=== PATIENT | male | born 1990 | race Two or more races ===

== ENCOUNTER 2024-11-27 15:23 | Emergency (ER) | payer OTHER ==
[~2024-11-27] VITALS: Ht 177.8 cm; Wt 74.4 kg
--- NOTE | 2024-11-27 16:04 | ED.PDOC ---
History of Present Illness HPI Comments A 34 YEAR OLD MALE PRESENTS TO THE ED WITH COMPLAINT OF COUGH AND SHORTNESS OF BREATH. PATIENT STATES HE HAS BEEN EXPERIENCING A COUGH AND CONGESTION WITH DIFFICULTY BREATHING/SHORTNESS OF BREATH OFF AND ON FOR THE PAST 2 WEEKS WITH WORSENING SYMPTOMS OVER THE PAST 3 DAYS. PATIENT REPORTS HE WENT TO [facility] TODAY WHERE LABS WERE DONE AND WAS INSTRUCTED TO GO TO THE ED FOR FURTHER EVALUATION AND TO RULE OUT A PE. PATIENT DENIES FEVER, CHILLS, CHEST PAIN, ABDOMINAL PAIN, NAUSEA, VOMITING, HEADACHE, OR OTHER COMPLAINTS. NO OTHER SYMPTOMS OR MODIFYING FACTORS AT THIS TIME. PATIENT IS ALERT, ORIENTED X 4, AND HAS STEADY GAIT. Chief Complaint: Cough Time Seen by MD: 15:40 Reviewed Notes: Nurses Notes, Medications, Allergies Allergies: Coded Allergies: NO KNOWN ALLERGIES (Unverified , 11/27/24) Home Meds Active Scripts Promethazine-Dm (Promethazine Dm 6.25-15 mg/5Ml) 1 Maribel Maribel, 5 ML PO TID, #180 ML Prov:HELENA PETERSON 11/27/24 Azithromycin (Azithromycin) 500 Mg Tab, 1 TAB PO DAILY, #5 TAB Prov:HELENA PETERSON 11/27/24 Levofloxacin Hemihydrate (LEVAQUIN 500 MG) 500 Mg Tab, 1 TAB PO DAILY, #10 TAB Prov:HELENA PETERSON 11/27/24 Information Source: Patient Mode of Arrival: Ambulatory Severity: Moderate Timing: Weeks Duration: Since onset, Days Prehospital treatment: None Medication Refill: For: Other (COUGH, CONGESTION AND SOB. ) Past Medical History PAST MEDICAL HISTORY: Denies Surgical History: Denies all surgeries Family History Family History: Reviewed,noncontributory to illness Social History Smoker: Non-Smoker Alcohol: Occasionally Drugs: Marijuana Lives In: Home Constitutional: denies: chills, diaphoresis, fatigue, fever, malaise, sweats, weakness, others EENTM: reports: nose congestion; denies: blurred vision, double vision, ear bleeding, ear discharge, ear drainage, ear pain, ear ringing, eye pain, eye redness, hearing loss, mouth pain, mouth swelling, nasal discharge, nose bleeding, nose pain, photophobia, tearing, throat pain, throat swelling, voice changes, others Respiratory: reports: cough, shortness of breath; denies: hemoptysis, orthopnea, SOB at rest, SOB with excertion, stridor, wheezing, others Gastrointestinal: denies: abdomen distended, abdominal pain, blood streaked bowels, constipated, diarrhea, dysphagia, difficulty swallowing, hematemesis, melena, nausea, poor appetite, poor fluid intake, rectal bleeding, rectal pain, vomiting, others Genitourinary: denies: burning, dysuria, flank pain, frequency, hematuria, incontinence, penile discharge, penile sore, pain, testicle pain, testicle swelling, urgency, others Neurological: denies: dizziness, fainting, headache, left sided numbness, left sided weakness, numbness, paresthesia, pre-existing deficit, right sided numbness, right sided weakness, seizure, speech problems, tingling, tremors, weakness, others Musculoskeletal: denies: back pain, gout, joint pain, joint swelling, muscle pain, muscle stiffness, neck pain, others Integumetry: denies: bruises, change in color, change in hair/nails, dryness, laceration, lesions, lumps, rash, wounds, others Allergic/Immunocompromised: denies: Difficulty Healing, Frequent Infections, Hives, Itching, others Hematologic/Lymphatic: denies: anemia, blood clots, easy bleeding, easy bruising, swollen glands, others Endocrine: denies: excessive hunger, excessive sweating, excessive thirst, excessive urination, flushing, intolerance to cold, intolerance to heat, unexplained weight gain, unexplained weight loss, others Psychiatric: denies: anxiety, bipolar disorder, depression, hopeless, panic disorder, schizophrenia, sleepless, suicidal, others All Other Systems: Reviewed and Negative Physical Exam General Appearance: No Apparent Distress, Normal HEENT: Normal ENT Inspection, PERRL/EOMI, Pharynx Normal, TMs Normal Neck: Full Range of Motion, Non-Tender, Normal, Normal Inspection Respiratory: Chest Non-Tender, Decreased Breath Sounds, Expiration, No Accessory Muscle Use, No Respiratory Distress, Rhonchi Cardiovascular: No Edema, No JVD, No Murmur, No Gallop, Normal Peripheral Pulses, Regular Rate/Rhythm Breast Exam: Deferred Gastrointestinal: No Organomegaly, Non Tender, No Pulsatile Mass, Normal Bowel Sounds, Soft Genitalia: Deferred Pelvic: Deferred Rectal: Deferred Extremities: No calf tenderness, Normal capillary refill, Normal inspection, Normal range of motion, Non-tender, No pedal edema Musculoskeletal : Apperance: Normal Neurologic: Alert, circuit court clerk II-XII nml as Tested, No Motor Deficits, Normal Affect, Normal Mood, No Sensory Deficits Cerebellar Function: Normal Reflexes: Normal Skin: Dry, Normal Color, Warm Peripheral Pulses: 2+ carotid (R), 2+ carotid (L) Lymphatic: No Adenopathy Was a procedure done? Was a procedure done?: No Differential Dx Considerations may include: URI, BRONCHITIS, PNEUMONIA, TONSILLITIS, PHARYNGITIS, PE, DYSPNEA X-Ray, Labs, Meds, VS Vital Signs Date Time Temp Pulse Resp B/P (MAP) Pulse Ox O2 Delivery O2 Flow Rate FiO2 11/27/24 18:31 98.0 99 18 130/84 (99) 95 98.0 11/27/24 18:31 99 18 95 Room Air 11/27/24 15:43 20 95 Room Air 0 11/27/24 15:43 98.4 109 20 120/82 (95) 95 98.4 Lab Test 11/27/24 15:51 Range/Units White Blood Count 11.9 H 4.4-10.8 10^3/uL Red Blood Count 5.30 4.5-5.90 10^6/uL Hemoglobin 16.1 13.5-17.5 g/dL Hematocrit 45.6 41.0-53.0 % Mean Corpuscular Volume 86.1 80.0-100.0 fL Mean Corpuscular Hemoglobin 30.4 28.0-32.0 pg Mean Corpuscular Hemoglobin Concent 35.3 32.0-36.0 g/dL Red Cell Distribution Width 13.5 11.8-14.3 % Platelet Count 382 140-450 10^3/uL Mean Platelet Volume 8.1 6.9-10.8 fL Neutrophils (%) (Auto) 80.7 H 37.0-80.0 % Lymphocytes (%) (Auto) 8.9 L 10.0-50.0 % Monocytes (%) (Auto) 7.7 0.0-12.0 % Eosinophils (%) (Auto) 1.5 0.0-7.0 % Basophils (%) (Auto) 1.2 0.0-2.0 % Neutrophils # (Auto) 9.6 H 1.6-8.6 10 ^3/uL Lymphocytes # (Auto) 1.1 0.4-5.4 10 ^3/uL Monocytes # (Auto) 0.9 0-1.3 10 ^3/uL Eosinophils # (Auto) 0.2 0-0.8 10 ^3/uL Basophils # (Auto) 0.1 0-0.2 10 ^3/uL Nucleated Red Blood Cells 0.2 % D-Dimer, Quantitative 0.66 H 0.0-0.49 mg/L FEU Sodium Level 138 136-145 mmol/L Potassium Level 4.2 3.5-5.1 mmol/L Chloride Level 98 98-107 mmol/L Carbon Dioxide Level 30 20-31 mmol/L Anion Gap 10 5-15 Blood Urea Nitrogen 11 9-23 mg/dL Creatinine 1.17 0.700-1.30 mg/dL Glomerular Filtration Rate Calc 83 >90 mL/min BUN/Creatinine Ratio 9.4 L 10.0-20.0 Serum Glucose 106 74-106 mg/dL Calcium Level 9.9 8.7-10.4 mg/dL Current Medications Medications (Trade) Dose Ordered Sig/Jenny Route Start Time Stop Time Status Last Admin Ceftriaxone Sodium 50 ml @ 100 mls/hr ONCE ONCE IV 11/27/24 17:15 11/27/24 17:44 DC 11/27/24 17:13 Sodium Chloride 1,000 ml @ 1,000 mls/hr Q1H ONCE IV 11/27/24 17:15 11/27/24 18:14 DC 11/27/24 17:16 Azithromycin 250 ml @ 125 mls/hr ONCE ONCE IV 11/27/24 17:15 11/27/24 18:42 DC 11/27/24 17:13 PATIENT: MARGARITA LOGANT: [id number]: [id number] : 1990 LOC: ER ROOM / BED: / AGE / SEX: 34 / M ADM STATUS: REG ER SERVICE [id number] ORDERING PHYSICIAN: HELENA PETERSON PROCEDURE(s): CTACH - CT ANGIO CHEST CONTRAST REASON: SOB, COUGH WITH MILD ELEVATED D-DIMER ORDER NUMBER(s): [id number], ACCESSION NUMBER(s): [id number] INDICATION: SOB, COUGH WITH MILD ELEVATED D-DIMER TECHNIQUE: Multidetector CTA of the chest was performed of the chest with 100 cc of intravenous contrast. PULMONARY ANGIOGRAPHY PROTOCOL was utilized using a bolus-tracking technique centered on the main pulmonary artery. Axial, coronal and sagittal multiplanar and MIP reformats were performed. Radiation Dose Information: CT Dose: CTDI volume is 23.68 mGy. Dose-length product is 597.79 mGy*cm Omnipaque 350: 70 mL The dose indicators for CT are the volume Computed Tomography (CT) Dose Index (CTDIvol) and the Dose Length Product (DLP), and are measured in units of mGy and mGy-cm, respectively. These indicators are not patient dose, but values generated from the CT scanner acquisition factors. The report includes radiation exposure data for exposures received during this examination. Findings: Pulmonary artery: Normal caliber of the pulmonary artery. No large central or large segmental pulmonary embolism. Patchy bilateral perihilar airspace disease primarily involving right middle lung field lingula and both lower lobes. Lower neck: Normal thyroid. Lungs: No focal consolidation, pulmonary mass, or suspicious pulmonary nodule. Right apical pleural scarring Heart/Vascular Structures: Normal heart size. Normal caliber and enhancement of the aorta. No findings of pulmonary embolus or pulmonary artery hypertension. Lymph Nodes: No adenopathy Pleura: No pleural effusion or significant pneumothorax. Musculoskeletal: No acute osseous abnormality. Upper abdomen: Limited portions of the upper abdomen are unremarkable. IMPRESSION: 1. No pulmonary embolism or pulmonary artery hypertension. 2. Patchy bilateral airspace disease scattered throughout the lingula and right middle lobe as well as both lower lobes. 2. No acute intrathoracic abnormality. ATED BY: ELLEN FABIAN Jr., DO DICTATED DATE/TIME: 11/27/241744 SIGNED BY: ELLEN FABIAN Jr., SIGNED DATE/TIME: 11/27/241744 CC: X-Ray, Labs, Meds, VS Comment EXTERNAL MEDICAL RECORDS REVIEWED: [NONE] INDEPENDENT HISTORIANS: [NONE] SOCIAL DETERMINANTS OF HEALTH: [NONE] LABS ORDERED: CBC, BMP, D-DIMER REVIEWED AND INTERPRETED RESULTS: D-DIMER 0.66, WBC 11.9 IMAGING ORDERED: XR CHEST, CT ANGIO CHEST-PULMONARY TREATMENTS ORDERED: NS 1 L IV, ROCEPHIN 1 G IV, AZITHROMYCIN 1 G IV PROCEDURES PERFORMED: NONE CRITICAL CARE TIME: NONE I HAVE DISCUSSED THE PATIENT WITH THE ATTENDING PHYSICIAN DR. OVERTON AND HE AGREES WITH THE PATIENT'S PLAN OF CARE AND DISPOSITION. BASED ON HISTORY OF PRESENT ILLNESS, AND PHYSICAL EXAM, PATIENT WILL BE DISCHARGED HOME. DISCUSSED PLAN FOR DISCHARGE HOME WITH RX [LEVAQUIN 500 MG, AZITHROMYCIN 500 MG, AND PHENERGAN DM]. MEDICATION WARNINGS GIVEN. SHARED DECISION MAKING: PATIENT INSTRUCTED TO FOLLOW UP WITH PRIMARY CARE PROVIDER IN 1-2 DAYS FOR RE-EVALUATION OF SYMPTOMS. PATIENT VERBALIZES UNDERSTANDING TO RETURN TO ED FOR NEW OR WORSENING SYMPTOMS OR IF FOLLOW UP WITH PCP CANNOT BE OBTAINED. PATIENT FEELS COMFORTABLE GOING HOME AT THIS TIME. ALL QUESTIONS ADDRESSED AT TIME OF DISCHARGE. Images Reviewed?: Images reviewed and evaluated by me Time of 1ST Reevaluation: 17:00 Reevaluation 1ST: Unchanged Time of 2ND Reevaluation: 19:00 Reevaluation 2ND: Improved Patient Education/Counseling: Diagnosis, Treatment, Need For Follow Up Family Education/Counseling: Diagnosis, Treatment, Need For Follow Up, No Family Present Medical Screening: No EMC Exist At This Time SEPSIS Sepsis Screen Physician Orders Chest Two Views Routine (11/27/24 15:44) Heplock Iv (11/27/24 ) Ct Angio Chest Contrast (11/27/24 16:25) Vital Signs Date Time Temp Pulse Resp B/P (MAP) Pulse Ox O2 Delivery O2 Flow Rate FiO2 11/27/24 18:31 98.0 99 18 130/84 (99) 95 98.0 11/27/24 18:31 99 18 95 Room Air 11/27/24 15:43 20 95 Room Air 0 11/27/24 15:43 98.4 109 20 120/82 (95) 95 98.4 Laboratory Tests Test 11/27/24 15:51 White Blood Count 11.9 10^3/uL (4.4-10.8) H Departure 1 Departure Time of Disposition: 19:00 Impression: Primary Impression: Dyspnea Qualified Codes: R06.02 - Shortness of breath Additional Impression: Acute pneumonia Disposition: 01 HOME / SELF CARE / HOMELESS Condition: Stable Additional Instructions: FOLLOW-UP WITH PCP IN 1 TO 2 DAYS. TAKE MEDICATIONS PRESCRIBED. RETURN TO ED FOR ANY NEW OR WORSENING SYMPTOMS. e-Prescriptions Promethazine-Dm (Promethazine Dm 6.25-15 mg/5Ml) 1 Maribel Maribel 5 ML PO TID, #180 ML Prov: HELENA PETERSON 11/27/24 Azithromycin (Azithromycin) 500 Mg Tab 1 TAB PO DAILY, #5 TAB Prov: HELENA PETERSON 11/27/24 Levofloxacin Hemihydrate (LEVAQUIN 500 MG) 500 Mg Tab 1 TAB PO DAILY, #10 TAB Prov: HELENA PETERSON 11/27/24 Discharged With: Self Critical Care Note Critical Care Time?: No Stability Stability form required: No Heart Score Heart Score: Heart Score Response (Comments) Value History N/A 0 EKG N/A 0 Age N/A 0 Risk Factors N/A 0 Troponin N/A 0 Total 0 I personally scribed for HELENA PETERSON ([email or web address]) on 11/27/24 at 16:04. Electr onically submitted by Hua Perry ([email or web address]). I personally scribed for HELENA PETERSON ([email or web address]) on 11/28/24 at 06:44. Elec tronically submitted by Mani Goss ([email or web address]). HELENA PETERSON Nov 27, 2024 16:04
[2024-11-27 16:10] LABS: Carbon Dioxide 30 mmol/L (20-31)
[2024-11-27 16:11] LABS: Calcium 9.9 mg/dL (8.7-10.4)
[2024-11-27 16:13] LABS: Anion Gap 10 (5-15); Chloride 98 mmol/L (98-107); Potassium 4.2 mmol/L (3.5-5.1); Sodium 138 mmol/L (136-145)
[2024-11-27 16:15] LABS: BUN/Creatinine Ratio 9.4 (10.0-20.0); Blood Urea Nitrogen 11 mg/dL (9-23)
[2024-11-27 16:16] LABS: Glucose 106 mg/dL (74-106)
--- NOTE | 2024-11-27 16:17 | DVH ---
XY CHEST TWO VIEWS ROUTINE CLINICAL HISTORY: COUGH ANS SOB COMPARISON: None TECHNIQUE: Frontal and lateral view of the chest was obtained FINDINGS: Lines and Tubes: None Lungs: Mid and lower lung zone opacities. Pleura: No effusion. No pneumothorax. Cardiomediastinal contours: Unremarkable Bones: No acute osseous abnormality. IMPRESSION: Left mid and lower lung zone opacities which may represent pneumonia in the right clinical setting.
[2024-11-27 16:20] LABS: Hematocrit 45.6 % (41.0-53.0); Hemoglobin 16.1 g/dL (13.5-17.5); Mean Corpuscular Hemoglobin 30.4 pg (28.0-32.0); Mean Corpuscular Volume 86.1 fL (80.0-100.0); Nucleated Red Blood Cells % 0.2 %
[2024-11-27] MEDS: IOHEXOL 350 MG/ML 100ML IJ ONE (17:07)
[2024-11-27] MEDS: cefTRIAXone 1GM/50ML D5W 50 ML IV ONE (17:13)
[2024-11-27] MEDS: AZITHROMYCIN 500MG/ 250ML 250 ML IV ONE (17:13)
[2024-11-27] MEDS ORDERED: cefTRIAXone 1GM/50ML D5W 50 ML IV ONE (17:15)
[2024-11-27] MEDS: SODIUM CHLORIDE 0.9% 1,000 ML IV ONE (17:16)
--- NOTE | 2024-11-27 17:47 | DVH ---
INDICATION: SOB, COUGH WITH MILD ELEVATED D-DIMER TECHNIQUE: Multidetector CTA of the chest was performed of the chest with 100 cc of intravenous contr ast. PULMONARY ANGIOGRAPHY PROTOCOL was utilized using a bolus-tracking technique centered on the lia n pulmonary artery. Axial, coronal and sagittal multiplanar and MIP reformats were performed. Radiation Dose Information: CT Dose: CTDI volume is 23.68 mGy. Dose-length product is 597.79 mGy*cm Omnipaque 350: 70 mL The dose indicators for CT are the volume Computed Tomography (CT) Dose Index (CTDIvol) and the Dose Length Product (DLP), and are measured in units of mGy and mGy-cm, respectively. These indicators are not patient dose, but values generated from the CT scanner acquisition factors. The report includes radiation exposure data for exposures received during this examination. Findings: Pulmonary artery: Normal caliber of the pulmonary artery. No large central or large segmental pulmo nary embolism. Patchy bilateral perihilar airspace disease primarily involving right middle lung field lingula and b oth lower lobes. Lower neck: Normal thyroid. Lungs: No focal consolidation, pulmonary mass, or suspicious pulmonary nodule. Right apical pleural s carring Heart/Vascular Structures: Normal heart size. Normal caliber and enhancement of the aorta. No finding s of pulmonary embolus or pulmonary artery hypertension. Lymph Nodes: No adenopathy Pleura: No pleural effusion or significant pneumothorax. Musculoskeletal: No acute osseous abnormality. Upper abdomen: Limited portions of the upper abdomen are unremarkable. IMPRESSION: 1. No pulmonary embolism or pulmonary artery hypertension. 2. Patchy bilateral airspace disease scattered throughout the lingula and right middle lobe as well as both lower lobes. 2. No acute intrathoracic abnormality.
[2024-11-27] MEDS ORDERED: LEVO500T91 PO (17:53)
[2024-11-27] MEDS ORDERED: AZIT500T66 PO (17:53)
[2024-11-27] MEDS ORDERED: PROM1SOL4 PO (17:53)
[2024-11-27 18:31] VITALS: BP 130/84; PULSE 99; RESP 18; TEMP 98; O2SAT 95
== END 2024-11-27 18:35 | disposition home or self-care (01) ==
LOC: EEVIPCON 15:23 → ER 15:23
DX: J18.9 Pneumonia, unspecified organism (principal); F12.90 Cannabis use, unspecified, uncomplicated; Z79.899 Other long term (current) drug therapy
CPT/HCPCS: 36415; 71046; 71275; 80048; 85025; 85379; 96365; 96368; 99285; J0456; J0696; Q9967